=== PATIENT | female | born 1980 | race Caucasian/White ===

== ENCOUNTER 2017-01-21 16:35 | Observation (INO) | payer OTHER ==
[~2017-01-21] VITALS: Ht 157.5 cm; Wt 111.1 kg
[2017-01-21] MEDS ORDERED: CHILDREN'S ASPI81 MG PO (18:44)
[2017-01-21] MEDS ORDERED: HORMONES (19:08)
[2017-01-22 04:35] LABS: HEMOGLOBIN 12.1 gm/dl (12.3-15.3); RED BLOOD COUNT 4.23 M/UL (4.00-5.10); WHITE BLOOD COUNT 8.2 K/UL (4.5-11.0)
[2017-01-22 04:46] LABS: BUN/CREATININE RATIO 13 (0-10)
[2017-01-22] MEDS ORDERED: NORCO 10-325 T1 EACH PO (20:12)
== END 2017-01-22 20:35 | disposition home or self-care (01) ==
LOC: MED SURG 4 17:28
PROVIDERS: ADMIT Surgery
PROC: 0DTJ4ZZ Resection of Appendix, Percutaneous Endoscopic Approach (ICD-10-PCS; principal; 2017-01-21 19:02)
DX: K35.80 Unspecified acute appendicitis (principal); Z90.49 Acquired absence of other specified parts of digestive tract; Z79.899 Other long term (current) drug therapy; Z98.84 Bariatric surgery status
CPT/HCPCS: 36415; 80048; 85025; 94664; G0378; G0379; J1100; J1885; J2001; J2270; J2405; J2543; J2550; J2710; J3010; J7030; J7050; J7120